=== PATIENT | male | born 1960 | race Caucasian/White ===

== ENCOUNTER 2020-12-09 09:56 | Inpatient (IN) | payer OTHER, MEDICAID ==
[~2020-12-09] VITALS: Ht 165.1 cm; Wt 77.6 kg
[~2020-12-09 09:56] MED LIST: AMLODIPINE BESY10 MG PO; COZAAR 50 MG TA50 M2 PO; HYDROCODONE-AP1 EAC6 PO; IBUPROFEN 800800 M1 PO
[2020-12-09 10:08] VITALS: BP 188/114
[2020-12-09] MEDS ORDERED: ONDANSETRON ODT4 MG PO (10:11)
[2020-12-09] MEDS ORDERED: OXYCODONE PO (10:12)
[2020-12-09] MEDS ORDERED: COMPAZINE5 M1 PO (10:12)
[2020-12-09 10:47] LABS: ABSOLUTE EOSINOPHILS 0.1 thou/uL (0.0-0.7); ABSOLUTE LYMPHOCYTES 0.4 thou/uL (0.8-5.3); ABSOLUTE MONOCYTES 0.7 thou/uL (0.0-1.2); ABSOLUTE NEUTROPHILS 5.2 thou/uL (1.6-8.1); BASOPHILS 0.2 %; EOSINOPHILS 1.1 %; HEMATOCRIT 43.4 % (42.0-52.0); HEMOGLOBIN 14.9 gm/dL (14.0-18.0); LYMPHOCYTES 6.4 %; MCH 30.4 pg (26.0-34.0); MCHC 34.3 g/dL (28.0-37.0); MCV 88.5 fL (80.0-100.0); MONOCYTES 10.5 %; MPV 8.2 fl. (7.2-11.1); NUCLEATED RBCS 0 /100WBC; PLATELET COUNT* 286 thou/uL (150-400); POLYS 81.8 %; RDW-CV 14.9 % (10.5-14.5); WBC 6.4 thou/uL (4.0-11.0)
[2020-12-09 10:54] LABS: URINE BILIRUBIN NEGATIVE (Negative); URINE BLOOD 1+ (Negative); URINE CLARITY CLEAR; URINE COLOR YELLOW; URINE GLUCOSE-RANDOM 2+ (Negative); URINE KETONES 1+ (Negative); URINE LEUKOCYTES-REFLEX NEGATIVE (Negative); URINE NITRITE-REFLEX NEGATIVE (Negative); URINE PROTEIN 3+ (Negative); URINE SPECIFIC GRAVITY 1.025 (1.005-1.030)
[2020-12-09 11:03] LABS: CALCIUM 9.4 mg/dL (8.5-10.1); CREATININE 1.3 mg/dL (0.6-1.3); POTASSIUM 3.5 mmol/L (3.5-5.1)
[2020-12-09 11:07] LABS: SQUAMOUS NONE SEEN /LPF (0-3)
[2020-12-09 11:08] LABS: ALBUMIN 2.9 g/dL (3.4-5.0); TOTAL BILIRUBIN 0.8 mg/dL (<0.1-1.0); TOTAL PROTEIN 8.8 g/dL (6.4-8.2)
[2020-12-09 11:11] LABS: URINE WBC-REFLEX 6-15 Few /HPF (0-5)
[2020-12-09 11:13] LABS: URINE RBC 3-10 Few /HPF (0-2)
[2020-12-09 11:14] LABS: BACTERIA-REFLEX 1-9 Few /HPF (None Seen); CRYSTALS None Seen /LPF (None Seen); HYALINE CASTS 0-3 Few /LPF (None Seen); MUCUS 0-3 Light strn/LPF (None Seen)
[2020-12-09 15:20] VITALS: BP 181/99
[2020-12-09 18:25] LABS: CALCIUM 8.9 mg/dL (8.5-10.1); CREATININE 1.2 mg/dL (0.6-1.3)
[2020-12-09 18:30] VITALS: BP 135/81
[2020-12-09 18:31] VITALS: BP 154/83
[2020-12-09 18:40] LABS: POTASSIUM 2.4 mmol/L (3.5-5.1)
[2020-12-09 19:13] LABS: MAGNESIUM 2.3 mg/dL (1.8-2.4)
[2020-12-09 20:12] VITALS: BP 124/78
[2020-12-09] MEDS ORDERED: OXYCODONE HCL 55 MG PO (20:30)
[2020-12-09] MEDS ORDERED: OXYCODONE HCL E15 MG PO (20:32)
[2020-12-09 21:10] LABS: CALCIUM 8.9 mg/dL (8.5-10.1); CREATININE 1.3 mg/dL (0.6-1.3)
[2020-12-09 21:25] LABS: POTASSIUM 2.2 mmol/L (3.5-5.1)
[2020-12-10 00:17] VITALS: BP 180/99
[2020-12-10 04:00] VITALS: BP 150/90
[2020-12-10 08:00] VITALS: BP 207/105
[2020-12-10 10:49] LABS: CALCIUM 8.6 mg/dL (8.5-10.1); CREATININE 1.1 mg/dL (0.6-1.3)
[2020-12-10 10:55] LABS: POTASSIUM 2.9 mmol/L (3.5-5.1)
[2020-12-10 12:00] VITALS: BP 188/90
[2020-12-10 16:00] VITALS: BP 130/94
[2020-12-10 20:00] VITALS: BP 200/105
[2020-12-11 00:35] VITALS: BP 191/90
[2020-12-11 04:00] VITALS: BP 196/108
[2020-12-11 04:52] LABS: CALCIUM 8.4 mg/dL (8.5-10.1); CREATININE 0.8 mg/dL (0.6-1.3); POTASSIUM 3.1 mmol/L (3.5-5.1)
[2020-12-11 08:00] VITALS: BP 147/89
--- NOTE | 2020-12-11 08:02 | EKG ---
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
[2020-12-11] MEDS ORDERED: COZAAR100 MG PO (09:52)
[2020-12-11] MEDS ORDERED: NORVASC5 MG PO (09:52)
[2020-12-11] MEDS ORDERED: COMPAZINE5 M1 PO (09:52)
[2020-12-11] MEDS ORDERED: ONDANSETRON ODT4 MG PO (09:52)
[2020-12-11 10:51] VITALS: BP 147/89
[2020-12-11 10:53] VITALS: BP 147/89
[2020-12-11 12:00] VITALS: BP 169/101
== END 2020-12-11 12:50 | disposition home health service (06) | DRG 641 ==
LOC: M.ERS 09:56 → M.TBA-ER 11:46 → M.2W 18:28
PROVIDERS: Nurse Practitioner Family; ADMIT Internal Medicine; ATTEND Internal Medicine
DX: E86.0 Dehydration (principal); I10 Essential (primary) hypertension; E87.1 Hypo-osmolality and hyponatremia; E11.9 Type 2 diabetes mellitus without complications; F17.210 Nicotine dependence, cigarettes, uncomplicated; I16.0 Hypertensive urgency; Z20.822 Contact with and (suspected) exposure to COVID-19; Z85.89 Personal history of malignant neoplasm of other organs and systems